=== PATIENT | male | born 2000 | race African-American/Black ===

== ENCOUNTER → 2021-04-07 | Emergency (ER) | payer OTHER ==
[~2021-04-07] VITALS: Ht 177.8 cm; Wt 72.6 kg
[~2021-04-07] MED LIST: POTASSIUM CHLORIDE 20 MEQ TAB.PRT.SR PO ONE
--- NOTE | 2021-04-07 10:15 | NUR ---
PT BIB SELF C/O FEELS DEPRESSED AND SI NO SPECIFIC PLANS. PT IS AAOX4, NOT IN RESPIRATORY DISTRESS, V/S STABLE, KEPT RESTED AND COMFORTABLE. SITTER AT BEDSIDE. WILL CONTINUE TO MONITOR.
--- NOTE | 2021-04-07 10:42 | NUR ---
SEEN AND EXAMINED BY .
[2021-04-07 10:44] VITALS: BP 127/81
--- NOTE | 2021-04-07 10:52 | NUR ---
ER PHLEB AT BEDSIDE FOR BLOOD DRAW.
[2021-04-07 11:11] LABS: BASOPHILS # (AUTO) 0.1 K/uL (0.0-0.2); BASOPHILS % (AUTO) 0.6 % (0.0-2.0); EOSINOPHILS % (AUTO) 0.2 % (0.0-6.0); HEMATOCRIT 36 % (39-51); HEMOGLOBIN 11.5 g/dL (13.5-17.5); LYMPHOCYTES # (AUTO) 2.5 K/uL (0.8-4.8); LYMPHOCYTES % (AUTO) 18.2 % (20.0-44.0); MEAN CORPUSCULAR HGB CONC 32 g/dl (31.0-36.0); MEAN CORPUSCULAR VOLUME 85 fL (80-96); MONOCYTES # (AUTO) 1.6 K/uL (0.1-1.30); MONOCYTES % (AUTO) 11.9 % (2.0-12.0); NEUTROPHILS # (AUTO) 9.6 K/uL (1.8-8.9); NEUTROPHILS % (AUTO) 69.1 % (43.0-81.0); PLATELET COUNT (AUTO) 389 K/uL (150-450); RED BLOOD CELL COUNT(AUTO) 4.21 MIL/uL (4.5-6.0); WHITE BLOOD COUNT (AUTO) 13.9 K/uL (4.3-11.0)
[2021-04-07 11:32] LABS: ALANINE AMINOTRANSFERASE 43 U/L (12-78); ALKALINE PHOSPHATASE 77 U/L (46-116); ASPARTATE AMINOTRANSFERASE 67 U/L (15-37); BILIRUBIN,DIRECT 0.1 mg/dL (0.0-0.2); BILIRUBIN,TOTAL 0.3 mg/dL (0.2-1.0); CALCIUM, SERUM 9.1 mg/dL (8.5-10.1); CARBON DIOXIDE 30 mmol/L (21-32); CHLORIDE 103 mmol/L (98-107); CREATININE 1.2 mg/dL (0.6-1.3); GLUCOSE 104 mg/dL (74-106); SODIUM SERUM 142 mmol/L (136-145); TOTAL PROTEIN, SERUM 8.2 g/dL (6.4-8.2); UREA NITROGEN, BLOOD 10 mg/dL (7-18)
[2021-04-07 11:35] LABS: ACETAMINOPHEN < 10 ug/ml (10-30); POTASSIUM 2.6 mmol/L (3.5-5.1)
[2021-04-07 11:44] LABS: ALCOHOL, BLOOD 0 mg/dL (0-0)
--- NOTE | 2021-04-07 12:07 | NUR ---
FAXED CLINICALS TO [facility]
[2021-04-07 17:58] LABS: BILIRUBIN,URINE Negative (NEGATIVE); COLOR,URINE YELLOW (YELLOW); LEUKOCYTE ESTERASE ,URINE Negative (NEGATIVE); NITRITE, URINE Negative (NEGATIVE); PROTEIN,URINE Trace mg/dl (NEGATIVE); UGLUCOSE Negative (NEGATIVE); UROBILINOGEN,URINE 0.2 EU/dL (0.2)
[2021-04-07 18:04] LABS: BACTERIA,URINE Rare /HPF (None Seen); RBC,URINE NONE SEEN /HPF (0-2); SQUAMOUS EPITHELIAL CELL,UR Few /HPF (None Seen); WBC,URINE NONE SEEN /HPF (0-3)
--- NOTE | 2021-04-07 19:24 | NUR ---
CALLED [facility]TA[facility] OF [facility] NO BEDS AVAILABLE WILL LET US KNOW.
--- NOTE | 2021-04-07 19:37 | NUR ---
(-) SUICIDAL IDEATIONS PER PATIENT.
--- NOTE | 2021-04-07 19:50 | NUR ---
DC INSTRUCTIONS GIVEN TO PATIENT. PATIENT LEFT IN STABLE CONDITION
== END | disposition home or self-care (01) ==
LOC: ER 10:17 → EDBD 10:17
DX: R45.851 Suicidal ideations (principal); E87.6 Hypokalemia
CPT/HCPCS: 36415; 80048; 80076; 80143; 80307; 80320; 81001; 85025; 87426; 99285; C9803; G0480